=== PATIENT | female | born 1985 | race African-American/Black ===

== ENCOUNTER → 2017-05-20 | Outpatient (CLI) | payer BC ==
--- NOTE | 2017-05-20 14:22 | CARD ---
APPROVED REPORT EXAM: Two-dimensional and M-mode echocardiogram with Doppler and color Doppler. Other Information Quality : Average Rhythm : NSR INDICATION Palpitations 2D DIMENSIONS RVDd2.4 (2.9-3.5cm)Left Atrium(2D)2.7 (1.6-4.0cm) IVSd1.0 (0.7-1.1cm)Aortic Root(2D)2.6 (2.0-3.7cm) LVDd4.6 (3.9-5.9cm)LVOT Diameter2.0 (1.8-2.4cm) PWd0.9 (0.7-1.1cm)LVDs3.1 (2.5-4.0cm) FS (%) 32.6 %SV60.2 ml LVEF(%)61.1 (>50%) Aortic Valve AoV Peak Collin.107.1cm/sAoV VTI19.1cm AO Peak GR.4.6mmHgLVOT Peak Collin.87.9cm/s LVOT VTI 17.57cmAO Mean GR.3mmHg PAPO (VMAX)2.73fh8VHT (VTI)2.90cm2 Mitral Valve MV E Kgnznmlm00.5cm/sMV DECEL ARBK535zn MV A Ypjsdqbm86.5cm/sMV SRI04ws E/A Ratio2.1MV A [id number] MVA (PHT)3.22cm2 Tricuspid Valve TR P. Trfdwmhx128wq/sRAP [id number] TR Peak Gr.35ddGmKGER80suIe LEFT VENTRICLE The left ventricle is normal size. There is normal left ventricular wall thickness. Left ventricle sy stolic function is normal. The Ejection Fraction is 60-65%. There is normal LV segmental wall motion. The left ventricular diastolic function and filling is normal for age. RIGHT VENTRICLE The right ventricle is normal size. The right ventricular systolic function is normal. ATRIA The left atrium size is normal. The right atrium size is normal. The interatrial septum is intact wit h no evidence for an atrial septal defect or patent foramen ovale as noted on 2-D or Doppler imaging. AORTIC VALVE The aortic valve is normal in structure and function. The aortic valve is trileaflet. Doppler and Col or Flow revealed no significant aortic regurgitation. There is no significant aortic valvular stenosi s. MITRAL VALVE The mitral valve is normal in structure and function. There is no mitral valve stenosis. Doppler and Color Flow revealed no mitral valve regurgitation noted. TRICUSPID VALVE The tricuspid valve is normal in structure and function. Doppler and Color Flow revealed trace tricus pid regurgitation. The PA pressure was estimated at 24 mmHg. There is no tricuspid valve stenosis. PULMONIC VALVE The pulmonic valve is not well visualized. Doppler and Color Flow revealed no pulmonic valvular regur gitation. There is no pulmonic valvular stenosis. GREAT VESSELS The aortic root is normal in size. The ascending aorta is normal in size. The IVC is normal in size a nd collapses >50% with inspiration. PERICARDIAL EFFUSION There is no evidence of significant pericardial effusion. Critical Notification Critical Value: No <Conclusion> Left ventricle systolic function is normal. The Ejection Fraction is 60-65%. There is normal LV segmental wall motion. Doppler and Color Flow revealed trace tricuspid regurgitation. The PA pressure was estimated at 24 mmHg. There is no evidence of significant pericardial effusion.
== END | disposition home or self-care (01) ==
LOC: ECHO 12:34
PROVIDERS: ATTEND Internal Medicine Cardiovascular Disease
DX: Z87.898 Personal history of other specified conditions (principal)
CPT/HCPCS: 93306

== ENCOUNTER 2021-11-25 12:21 | Emergency (ER) | payer BC ==
[~2021-11-25] VITALS: Ht 172.7 cm; Wt 99.4 kg
[2021-11-25 12:21] VITALS: BP 126/80
--- NOTE | 2021-11-25 12:49 | PHYS DOC ---
Past History Past Medical History: No Pertinent History (ONEAL PRASAD APRN) Past Surgical History: No Surgical History (ONEAL PRASAD APRN) Smoking: Non-smoker Alcohol Use: Occasionally Drug Use: None (ONEAL PRASAD APRN) General Adult EDM: Chief Complaint: EYE PROBLEMS HPI: HPI: Patient is a 36-year-old female who presents to the emergency department for left eye redness, irritation, pain, photophobia and blurred vision that started on Friday. Patient reports that Friday night she went out and she came home and fell asleep with her contacts in. She reports the complex that she wears is a specific type of contact that he cannot sleep in. Her eye was irritated at that time and she noticed some redness to her cheeks so she washed her face, took her contacts out wash them and took the Benadryl. She reports that her symptoms improved Friday during the day but the irritation came back on Friday night. Patient denies headache, head injuries, fevers, nausea, vomiting. (ONEAL PRASAD APRN) Review of Systems: Review of Systems: Constitutional: HPI Eyes: See HPI HENT: See HPI GI: See HPI Integument: see HPI Neurologic: See HPI (ONEAL PRASAD APRN) Allergies: Allergies: Allergies Coded Allergies Type Severity Reaction Last Updated Verified No Known Drug Allergies 11/29/13 No (ONEAL PRASAD APRN) Physical Exam: PE: Constitutional: Well developed, well nourished, no acute distress, non-toxic appearance. [] HENT: Normocephalic, atraumatic, bilateral external ears normal, oropharynx moist, no oral exudates, nose normal. [] Eyes: PERRL, 5 mm bilaterally, left eyes scleral redness and tearing, no crusting noted, EOMI, conjunctiva normal, no discharge. [] Neck: Normal range of motion, no tenderness, supple, no stridor. [] Cardiovascular: Normal peripheral perfusion Lungs & Thorax: Normal work of breathing, no tachypnea Abdomen: Soft and obese Skin: Warm, dry, no erythema, no rash. [] Back: Normal range of motion Extremities: No tenderness, no cyanosis, no clubbing, ROM intact, no edema. [] Neurologic: Alert and oriented X 3, normal motor function, normal sensory function, no focal deficits noted. [] Psychologic: Affect normal, judgement normal, mood normal. [] (ONEAL PRASAD APRN) Current Patient Data: Vital Signs: Vital Signs Date Time Temp Pulse Resp B/P (MAP) Pulse Ox O2 Delivery O2 Flow Rate FiO2 11/25/21 12:21 98.6 89 14 126/80 (95) 96 Room Air (ONEAL PRASAD APRN) EKG: EKG: [] (ONEAL PRASAD APRN) Radiology/Procedures: Radiology/Procedures: [] (ONEAL PRASAD APRN) Heart Score: C/O Chest Pain: N/A Risk Factors: Risk Factors: DM, Current or recent (<one month) smoker, HTN, HLP, family history of CAD, obesity. Risk Scores: Score 0 - 3: 2.5% MACE over next 6 weeks - Discharge Home Score 4 - 6: 20.3% MACE over next 6 weeks - Admit for Clinical Observation Score 7 - 10: 72.7% MACE over next 6 weeks - Early Invasive Strategies (ONEAL PRASAD APRN) Course & Med Decision Making: Course & Med Decision Making Pertinent Labs and Imaging studies reviewed. (See chart for details) [] Patient presents to the emergency department for left eye redness and irritation that started after she slept in her contacts on Friday. Patient's vision in her right eye was 20/30, vision in her left eye was 20/40. Patient has not noted any crusting. Circadin foreseen were used with a Melchor lamp and patient does have a scleral abrasion to the left lower portion of her eye. Patient will be discharged home with erythromycin eye ointment and she is advised to follow-up with an verification engineer. I discussed with patient all findings and diagnostic testing as well as the need to follow-up with PCP for further evaluation and treatment or return to the ER if any new or worsening symptoms. Strict return precautions were also discussed at length. Patient voiced understanding and agreement with the plan. Patient is hemodynamically stable at the time of disposition. (ONEAL PRASAD APRN) Dragon Disclaimer: Dragon Disclaimer: This electronic medical record was generated, in whole or in part, using a voice recognition dictation system. (ONEAL PRASAD APRN) Attending Co-Sign The patient was seen and interviewed as well as examined at the bedside. The art was reviewed. The case was discussed. Agree with the plan of care. (LIANA WAITE DO) Departure Departure: Impression: Primary Impression: Abrasion of sclera Qualified Codes: S05.8X2A - Other injuries of left eye and orbit, initial encounter Disposition: HOME / SELF CARE / HOMELESS Condition: GOOD Referrals: CATHERINE CHRISTENSEN PA-C (PCP) Patient Instructions: Eye - Corneal Abrasion Additional Instructions: You were seen in the emergency department for left eye redness, pain and irritation after sleeping in contacts. You do have a scleral abrasion. This will be treated with antibiotic eye drops. take tylenol/ibuprofen for pain. You can use saline eyedrops to keep your eye well lubricated. Follow-up with an verification engineer tomorrow. Return to the emergency department if you develop wo rsening of your eye pain, vision loss, severe headache, intractable nausea or vomiting, high fevers refractory to treatment. [facility] : Scripts Ciprofloxacin Hcl (CIPROFLOXACIN HCL) 2.5 Ml Drops 2 DROP OS QID for abrasion for 5 Days, #5 ML 0 Refills Prov: ONEAL PRASAD APRN 11/25/21 ONEAL PRASAD APRN Nov 25, 2021 12:49 LIANA WAITE DO Nov 26, 2021 11:21
[2021-11-25] MEDS ORDERED: TETRACAINE 0.5% OPHTH SOLUTION 4ML BOTTLE. OS ONE (13:00)
[2021-11-25] MEDS ORDERED: FLUORESCEIN 1MG EYE STRIP. OS ONE (13:00)
[2021-11-25] MEDS ORDERED: ERYT1OIN3 OS (13:20)
[2021-11-25] MEDS ORDERED: CIPR2.5D2 OS (13:24)
== END 2021-11-25 13:40 | disposition home or self-care (01) ==
LOC: ER 12:21
DX: S05.8X2A Other injuries of left eye and orbit, initial encounter (principal); X58.XXXA Exposure to other specified factors, initial encounter; Y93.89 Activity, other specified; Y92.89 Other specified places as the place of occurrence of the external cause; Y99.8 Other external cause status
CPT/HCPCS: 99283